=== PATIENT | male | born 1955 | race Caucasian/White ===

== ENCOUNTER 2019-08-27 11:24 | Inpatient (IN) | payer MEDICARE, OTHER, SELFPAY ==
[~2019-08-27] VITALS: Ht 177.8 cm; Wt 90.8 kg
[2019-08-27] MEDS ORDERED: SODIUM CHLORIDE FLUSH 10ML SYR IVF ONE (12:00)
[2019-08-27] MEDS ORDERED: ONDANSETRON 2MG/ML, 2ML IVPush ONE (12:00)
[2019-08-27] MEDS ORDERED: MAALOX/HYOSCYAMINE/LIDOCAINE 45 ML BTL PO ONE (12:00)
[2019-08-27] MEDS ORDERED: FAMOTIDINE 20 MG/2 ML IVPush ONE (12:00)
--- NOTE | 2019-08-27 12:02 | NUR ---
PT HAS CO OF CP STARTING THIS AM AND ABDOMINAL PAIN. NO N.V PT HAD FALL LAST NIGHT. ABRASIONS TO LEFT ARM. PT STATES HE FEEL SUICIDAL, BUT CANNOT STATE A PLAN. METER ATTENDANT IN PLACED
[2019-08-27 12:30] LABS: MEAN CORPUSCULAR HEMOGLOBIN 29.6 pg (27.5-34.5); MEAN CORPUSCULAR HGB CONC 32.5 g/dL (33.2-36.2); MEAN PLATELET VOLUME 6.9 fL (7.4-10.4); PLATELET COUNT 261 x10^3/uL (130-400); RED BLOOD COUNT 4.66 x10^6/uL (4.38-5.82); RED CELL DISTRIBUTION WIDTH 14.8 % (9.4-14.8)
[2019-08-27] MEDS ORDERED: ONDANSETRON 2MG/ML, 2ML ONE (12:31)
[2019-08-27] MEDS ORDERED: MAALOX/HYOSCYAMINE/LIDOCAINE 45 ML BTL ONE (12:31)
[2019-08-27] MEDS ORDERED: FAMOTIDINE 20 MG/2 ML ONE (12:31)
[2019-08-27 12:36] LABS: ALANINE AMINOTRANSFERASE 85 U/L (12-78); ALBUMIN 3.6 g/dL (3.4-5.0); ANION GAP 8 mmol/L (5-15); CALCIUM 8.2 mg/dL (8.5-10.1); CHLORIDE 113 mmol/L (98-107)
[2019-08-27 12:39] LABS: ALKALINE PHOSPHATASE 183 U/L (45-117); BILIRUBIN,TOTAL 0.4 mg/dL (0.2-1.0); CREATININE 0.74 mg/dL (0.7-1.3); TOTAL PROTEIN 7.3 g/dL (6.4-8.2); TROPONIN I < 0.015 ng/mL (0.000-0.045)
[2019-08-27 12:40] LABS: SALICYLATE LEVEL < 1.7 mg/dL (2.8-20.0)
[2019-08-27 12:58] LABS: BASOPHILS # (AUTO) 0.07 x10^3/uL (0-0.1); BASOPHILS % (AUTO) 1 % (0-1); EOSINOPHILS # (AUTO) 0.11 x10^3/uL (0-0.4); EOSINOPHILS % (AUTO) 2 % (1-7); LYMPHOCYTES # (AUTO) 3.03 x10^3/uL (1-3.4); LYMPHOCYTES % (AUTO) 56 % (22-44); MD SCAN; MONOCYTES # (AUTO) 0.35 x10^3/uL (0.2-0.8); MONOCYTES % (AUTO) 7 % (2-9); NEUTROPHILS # (AUTO) 1.85 x10^3/uL (1.8-6.8); NEUTROPHILS % (AUTO) 34 % (42-75)
[2019-08-27] MEDS ORDERED: CEFTRIAXONE PMX 1GM/50ML 50 ML IV SCH ×2 (13:00→17:00)
[2019-08-27] MEDS ORDERED: CEFTRIAXONE PMX 1GM/50ML 50 ML IV ONE (13:00)
[2019-08-27] MEDS ORDERED: AZITHROMYCIN 500 MG in SODIUM CHLORIDE 0.9% 250 ML IV ONE (13:00)
--- NOTE | 2019-08-27 13:00 | NUR ---
ultra sound at bedside.
[2019-08-27 13:04] LABS: MICROSCOPIC INDICATED
[2019-08-27 13:06] LABS: AMPHETAMINE SCREEN, URINE Negative (Negative); BARBITURATE SCREEN, URINE Negative (Negative); BENZODIAZEPINE SCREEN, URINE Negative (Negative); CANNABINOID SCREEN, URINE Negative (Negative); COCAINE SCREEN, URINE Negative (Negative); METHADONE SCREEN, URINE Negative (Negative); OPIATE SCREEN, URINE Negative (Negative)
[2019-08-27] MEDS ORDERED: CEFTRIAXONE PMX 1GM/50ML 50 ML ONE (13:06)
--- NOTE | 2019-08-27 13:29 | NUR ---
Cultures drawn, medications administered as ordered.
--- NOTE | 2019-08-27 14:51 | NUR ---
pt resting in bed, call light in reach.
--- NOTE | 2019-08-27 16:00 | NUR ---
pt resting in bed, call light in reach
[2019-08-27] MEDS ORDERED: POTASSIUM CHLORIDE 20 MEQ TAB.ER.PRT PO ONE (16:30)
[2019-08-27] MEDS ORDERED: POTASSIUM CHLORIDE 20 MEQ TAB.ER.PRT ONE (16:37)
[2019-08-27] MEDS: SODIUM CHLORIDE 0.9% 1,000 ML IV SCH (16:47)
[2019-08-27] MEDS ORDERED: BISACODYL 10 MG SUPP PR PRN (17:00)
[2019-08-27] MEDS ORDERED: IBUPROFEN 600 MG TABLET PO PRN (17:00)
[2019-08-27] MEDS ORDERED: ONDANSETRON 2MG/ML, 2ML IVPush PRN (17:00)
--- NOTE | 2019-08-27 17:04 | NUR ---
[facility] AT BEDSIDE FOR EVALUAITON
[2019-08-27] MEDS ORDERED: ENOXAPARIN 40 MG/0.4 ML ONE (17:09)
[2019-08-27] MEDS: ENOXAPARIN 40 MG/0.4 ML SQ SCH (17:16)
[2019-08-27 17:50] LABS: BASOPHILS # (AUTO) 0.04 x10^3/uL (0-0.1); BASOPHILS % (AUTO) 1 % (0-1); EOSINOPHILS # (AUTO) 0.21 x10^3/uL (0-0.4); EOSINOPHILS % (AUTO) 4 % (1-7); LYMPHOCYTES # (AUTO) 2.79 x10^3/uL (1-3.4); LYMPHOCYTES % (AUTO) 49 % (22-44); MD NO; MEAN CORPUSCULAR HEMOGLOBIN 29.9 pg (27.5-34.5); MEAN CORPUSCULAR HGB CONC 33.1 g/dL (33.2-36.2); MEAN PLATELET VOLUME 7.2 fL (7.4-10.4); MONOCYTES # (AUTO) 0.44 x10^3/uL (0.2-0.8); MONOCYTES % (AUTO) 8 % (2-9); NEUTROPHILS # (AUTO) 2.22 x10^3/uL (1.8-6.8); NEUTROPHILS % (AUTO) 39 % (42-75); PLATELET COUNT 243 x10^3/uL (130-400); RED BLOOD COUNT 4.61 x10^6/uL (4.38-5.82); RED CELL DISTRIBUTION WIDTH 14.6 % (9.4-14.8); TROPONIN I < 0.015 ng/mL (0.000-0.045)
--- NOTE | 2019-08-27 18:51 | NUR ---
REPORT TO CRISSY CROWLEY
[2019-08-27] MEDS: DOXYCYCLINE 100 MG in DEXTROSE 5% 250 ML IV SCH (18:56)
[2019-08-27] MEDS ORDERED: LORazepam 2 MG/ML, 1ML ONE (20:45)
[2019-08-27] MEDS: LORazepam 2 MG/ML, 1ML IVPush PRN (20:46)
--- NOTE | 2019-08-27 21:10 | NUR ---
Pt placed on hospital bed, updated with plan of care. Resp even and unlabored.
[2019-08-27 23:25] LABS: TROPONIN I < 0.015 ng/mL (0.000-0.045)
--- NOTE | 2019-08-28 02:20 | NUR ---
PT RESTING ON HOSPITAL BED. RESP EVEN AND UNLABORED. SITTER IN DIRECT LINE OF SIGHT. WILL CONTINUE TO MONITOR.
[2019-08-28] MEDS: SODIUM CHLORIDE 0.9% 1,000 ML IV SCH (02:47)
--- NOTE | 2019-08-28 04:00 | NUR ---
Pt resting on hospital bed. Resp even and unlabored. Sitter in direct line of sight.
[2019-08-28 05:43] LABS: ALBUMIN 3.1 g/dL (3.4-5.0); ANION GAP 5 mmol/L (5-15); CALCIUM 7.9 mg/dL (8.5-10.1); CHLORIDE 113 mmol/L (98-107)
[2019-08-28 05:52] LABS: ALANINE AMINOTRANSFERASE 68 U/L (12-78); ALKALINE PHOSPHATASE 133 U/L (45-117); BILIRUBIN,TOTAL 0.7 mg/dL (0.2-1.0); CHOL/HDL RATIO 2.1; CHOLESTEROL, TOTAL 133 mg/dL (140-239); HDL CHOL % 48 % (26-37); HDL CHOLESTEROL (DIRECT) 64 mg/dL (40-60); LDL CHOLESTEROL,CALCULATED 53 mg/dL (54-169); LDL/HDL RATIO 0.8 (0.5-3.0); TOTAL PROTEIN 6.1 g/dL (6.4-8.2); TRIGLYCERIDES 80 mg/dL (50-200); VLDL CHOLESTEROL 16 mg/dL (0-25)
--- NOTE | 2019-08-28 06:13 | NUR ---
Pt resting on hospital bed. Pt resp even and unlabored. Sitter in direct line of sight. Meal tray ordered
[2019-08-28] MEDS ORDERED: MAGNESIUM SULFATE PMX 2GM/50ML 50 ML IV ONE ×2 (08:00→20:00)
[2019-08-28] MEDS: THIAMINE 100MG TABLET PO SCH (08:17)
[2019-08-28] MEDS: FOLIC ACID 1 MG TABLET PO SCH (08:17)
[2019-08-28] MEDS: DOXYCYCLINE 100 MG in DEXTROSE 5% 250 ML IV SCH ×2 (08:17→20:15)
[2019-08-28] MEDS ORDERED: LORazepam 2 MG/ML, 1ML ONE (08:34)
[2019-08-28] MEDS ORDERED: MAGNESIUM SULFATE PMX 2GM/50ML 50 ML ONE (08:39)
[2019-08-28] MEDS: LORazepam 2 MG/ML, 1ML IVPush PRN ×4 (08:41→20:28)
--- NOTE | 2019-08-28 11:03 | NUR ---
PT SLEEPING IN BED. NAD. SITTER MONITORING FROM [facility]
[2019-08-28 12:03] VITALS: BP 133/77
[2019-08-28] MEDS: CEFTRIAXONE PMX 1GM/50ML 50 ML IV SCH (13:14)
[2019-08-28] MEDS: ENOXAPARIN 40 MG/0.4 ML SQ SCH (16:30)
[2019-08-28 21:46] VITALS: BP 141/82
[2019-08-29 02:22] VITALS: BP 106/62
[2019-08-29 05:39] LABS: BASOPHILS # (AUTO) 0.03 x10^3/uL (0-0.1); BASOPHILS % (AUTO) 1 % (0-1); EOSINOPHILS # (AUTO) 0.35 x10^3/uL (0-0.4); EOSINOPHILS % (AUTO) 7 % (1-7); LYMPHOCYTES # (AUTO) 2.21 x10^3/uL (1-3.4); LYMPHOCYTES % (AUTO) 46 % (22-44); MD NO; MEAN CORPUSCULAR HEMOGLOBIN 29.8 pg (27.5-34.5); MEAN PLATELET VOLUME 7.5 fL (7.4-10.4); MONOCYTES # (AUTO) 0.37 x10^3/uL (0.2-0.8); MONOCYTES % (AUTO) 8 % (2-9); NEUTROPHILS # (AUTO) 1.87 x10^3/uL (1.8-6.8); NEUTROPHILS % (AUTO) 39 % (42-75); PLATELET COUNT 203 x10^3/uL (130-400); RED BLOOD COUNT 4.31 x10^6/uL (4.38-5.82); RED CELL DISTRIBUTION WIDTH 14.4 % (9.4-14.8)
[2019-08-29 05:40] LABS: ALANINE AMINOTRANSFERASE 56 U/L (12-78); ALBUMIN 2.9 g/dL (3.4-5.0); ANION GAP 5 mmol/L (5-15); CALCIUM 8.3 mg/dL (8.5-10.1); CHLORIDE 110 mmol/L (98-107); CREATININE 0.66 mg/dL (0.7-1.3)
[2019-08-29 05:42] LABS: ALKALINE PHOSPHATASE 122 U/L (45-117); BILIRUBIN,TOTAL 0.6 mg/dL (0.2-1.0)
[2019-08-29] MEDS ORDERED: REGADENOSON 0.4 MG/5 ML SYRINGE ONE (07:35)
[2019-08-29 07:56] VITALS: BP 138/80
[2019-08-29] MEDS: FOLIC ACID 1 MG TABLET PO SCH (10:07)
[2019-08-29] MEDS: DOXYCYCLINE 100 MG in DEXTROSE 5% 250 ML IV SCH ×2 (10:07→21:56)
[2019-08-29] MEDS: THIAMINE 100MG TABLET PO SCH (10:07)
[2019-08-29] MEDS: LORazepam 2 MG/ML, 1ML IVPush PRN (10:12)
[2019-08-29 12:43] VITALS: BP 146/87
[2019-08-29] MEDS: CEFTRIAXONE PMX 1GM/50ML 50 ML IV SCH (14:35)
[2019-08-29 14:54] VITALS: BP 132/87
[2019-08-29] MEDS: ENOXAPARIN 40 MG/0.4 ML SQ SCH (17:43)
[2019-08-29 21:51] VITALS: BP 145/82
[2019-08-30 01:20] VITALS: BP 124/71
[2019-08-30] MEDS: THIAMINE 100MG TABLET PO SCH (08:47)
[2019-08-30 08:48] VITALS: BP 131/87
[2019-08-30] MEDS: FOLIC ACID 1 MG TABLET PO SCH (08:48)
[2019-08-30] MEDS ORDERED: PANTOPRAZOLE 40 MG IV IVPush SCH (09:00)
[2019-08-30] MEDS: DOXYCYCLINE 100 MG in DEXTROSE 5% 250 ML IV SCH ×2 (11:08→23:34)
[2019-08-30 13:31] VITALS: BP 147/85
[2019-08-30] MEDS: ACETAMINOPHEN 500 MG TABLET PO PRN ×2 (13:40→20:44)
[2019-08-30] MEDS: CEFTRIAXONE PMX 1GM/50ML 50 ML IV SCH (13:44)
[2019-08-30] MEDS: LORazepam 2 MG/ML, 1ML IVPush PRN ×3 (13:44→20:30)
[2019-08-30] MEDS: ENOXAPARIN 40 MG/0.4 ML SQ SCH (17:06)
[2019-08-30 19:02] VITALS: BP 145/94
[2019-08-31 01:56] VITALS: BP 127/76
[2019-08-31] MEDS: PANTOPRAZOLE 40MG TABLET PO SCH (06:22)
[2019-08-31] MEDS: LORazepam 2 MG/ML, 1ML IVPush PRN ×4 (06:28→20:44)
[2019-08-31 08:22] VITALS: BP 130/85
[2019-08-31] MEDS: FOLIC ACID 1 MG TABLET PO SCH (10:20)
[2019-08-31] MEDS: ACETAMINOPHEN 500 MG TABLET PO PRN ×2 (10:20→17:14)
[2019-08-31] MEDS: DOXYCYCLINE 100 MG in DEXTROSE 5% 250 ML IV SCH ×2 (10:20→23:15)
[2019-08-31] MEDS: THIAMINE 100MG TABLET PO SCH (10:20)
[2019-08-31 12:51] VITALS: BP 126/81
[2019-08-31] MEDS: CEFTRIAXONE PMX 1GM/50ML 50 ML IV SCH (13:16)
[2019-08-31] MEDS: ENOXAPARIN 40 MG/0.4 ML SQ SCH (17:14)
[2019-08-31 20:49] VITALS: BP 107/68
[2019-09-01] MEDS: LORazepam 2 MG/ML, 1ML IVPush PRN (01:16)
[2019-09-01 01:17] VITALS: BP 116/77
[2019-09-01] MEDS: PANTOPRAZOLE 40MG TABLET PO SCH (07:15)
[2019-09-01 07:19] VITALS: BP 117/86
[2019-09-01] MEDS ORDERED: LORazepam 2 MG/ML, 1ML IV PRN ×3 (08:00)
[2019-09-01] MEDS ORDERED: LORazepam 0.5MG TABLET PO PRN (08:00)
[2019-09-01] MEDS: LORazepam 1MG TABLET PO PRN ×3 (09:11→23:33)
[2019-09-01] MEDS: THIAMINE 100MG TABLET PO SCH (09:12)
[2019-09-01] MEDS: FOLIC ACID 1 MG TABLET PO SCH (09:12)
[2019-09-01] MEDS ORDERED: LORazepam 1MG TABLET ONE ×2 (11:21→20:56)
[2019-09-01 15:18] VITALS: BP 130/83
[2019-09-01] MEDS: POLYETHYLENE GLYCOL 17 GM PACKET PO PRN (17:33)
[2019-09-01] MEDS: ENOXAPARIN 40 MG/0.4 ML SQ SCH (17:33)
[2019-09-01] MEDS: ACETAMINOPHEN 500 MG TABLET PO PRN (17:33)
[2019-09-01 19:24] VITALS: BP 136/78
[2019-09-02 00:01] VITALS: BP 101/63
[2019-09-02] MEDS: PANTOPRAZOLE 40MG TABLET PO SCH (05:14)
[2019-09-02 05:22] LABS: MEAN PLATELET VOLUME 7.4 fL (7.4-10.4); PLATELET COUNT 212 x10^3/uL (130-400); RED BLOOD COUNT 4.88 x10^6/uL (4.38-5.82); RED CELL DISTRIBUTION WIDTH 14.9 % (9.4-14.8)
[2019-09-02 05:38] LABS: CHLORIDE 107 mmol/L (98-107)
[2019-09-02 05:47] LABS: ALANINE AMINOTRANSFERASE 55 U/L (12-78); ALBUMIN 3.4 g/dL (3.4-5.0); ALKALINE PHOSPHATASE 137 U/L (45-117); ANION GAP 7 mmol/L (5-15); BILIRUBIN,TOTAL 0.5 mg/dL (0.2-1.0); CALCIUM 9.2 mg/dL (8.5-10.1); CREATININE 0.83 mg/dL (0.7-1.3)
[2019-09-02 05:59] LABS: BASOPHILS # (AUTO) 0.02 x10^3/uL (0-0.1); BASOPHILS % (AUTO) 0 % (0-1); EOSINOPHILS # (AUTO) 0.38 x10^3/uL (0-0.4); EOSINOPHILS % (AUTO) 6 % (1-7); LYMPHOCYTES % (AUTO) 45 % (22-44); MD SCAN; MONOCYTES # (AUTO) 0.54 x10^3/uL (0.2-0.8); MONOCYTES % (AUTO) 9 % (2-9); NEUTROPHILS # (AUTO) 2.53 x10^3/uL (1.8-6.8); NEUTROPHILS % (AUTO) 40 % (42-75)
[2019-09-02 07:40] VITALS: BP 131/93
[2019-09-02] MEDS: THIAMINE 100MG TABLET PO SCH (07:51)
[2019-09-02] MEDS: FOLIC ACID 1 MG TABLET PO SCH (07:51)
[2019-09-02] MEDS: ACETAMINOPHEN 500 MG TABLET PO PRN (14:25)
[2019-09-02] MEDS: LORazepam 0.5MG TABLET PO PRN ×2 (14:25→19:52)
[2019-09-02 14:26] VITALS: BP 118/90
[2019-09-02] MEDS: ENOXAPARIN 40 MG/0.4 ML SQ SCH (17:00)
[2019-09-02 18:23] VITALS: BP 128/83
[2019-09-03 01:51] VITALS: BP 131/87
[2019-09-03] MEDS: PANTOPRAZOLE 40MG TABLET PO SCH (06:08)
[2019-09-03 06:10] VITALS: BP 121/76
[2019-09-03] MEDS: THIAMINE 100MG TABLET PO SCH (10:07)
[2019-09-03] MEDS: FOLIC ACID 1 MG TABLET PO SCH (10:07)
[2019-09-03 14:08] VITALS: BP 107/71
[2019-09-03] MEDS: BENZTROPINE 1 MG TABLET PO SCH ×2 (14:08→20:13)
[2019-09-03] MEDS: ENOXAPARIN 40 MG/0.4 ML SQ SCH (17:24)
[2019-09-03 19:19] VITALS: BP 92/60
[2019-09-03] MEDS ORDERED: MAALOX/HYOSCYAMINE/LIDOCAINE 45 ML BTL PO ONE (20:30)
[2019-09-03 20:33] VITALS: BP 123/81
[2019-09-03] MEDS: QUETIAPINE 100MG TABLET PO SCH (21:17)
[2019-09-04 00:54] VITALS: BP 121/81
[2019-09-04] MEDS: PANTOPRAZOLE 40MG TABLET PO SCH (05:42)
[2019-09-04 06:42] VITALS: BP 103/73
[2019-09-04] MEDS: THIAMINE 100MG TABLET PO SCH (09:02)
[2019-09-04] MEDS: BENZTROPINE 1 MG TABLET PO SCH ×2 (09:02→20:27)
[2019-09-04] MEDS: FOLIC ACID 1 MG TABLET PO SCH (09:02)
[2019-09-04 15:01] VITALS: BP 113/73
[2019-09-04] MEDS: ENOXAPARIN 40 MG/0.4 ML SQ SCH (17:37)
[2019-09-04] MEDS: DOCUSATE 100 MG CAPSULE PO PRN (17:41)
[2019-09-04] MEDS: POLYETHYLENE GLYCOL 17 GM PACKET PO PRN (17:41)
[2019-09-04 18:55] VITALS: BP 116/75
[2019-09-04] MEDS: QUETIAPINE 100MG TABLET PO SCH (20:28)
[2019-09-05 01:09] VITALS: BP 154/91
[2019-09-05] MEDS: PANTOPRAZOLE 40MG TABLET PO SCH (05:43)
[2019-09-05 06:35] VITALS: BP 103/71
[2019-09-05] MEDS: THIAMINE 100MG TABLET PO SCH (09:00)
[2019-09-05] MEDS: BENZTROPINE 1 MG TABLET PO SCH ×2 (10:42→20:23)
[2019-09-05] MEDS: FOLIC ACID 1 MG TABLET PO SCH (10:42)
[2019-09-05 13:21] VITALS: BP 126/87
[2019-09-05] MEDS: ENOXAPARIN 40 MG/0.4 ML SQ SCH (17:33)
[2019-09-05 19:50] VITALS: BP 129/79
[2019-09-05] MEDS: DOCUSATE 100 MG CAPSULE PO PRN (20:22)
[2019-09-05] MEDS: AMITRIPTYLINE 25 MG TABLET PO SCH (20:23)
[2019-09-05] MEDS: QUETIAPINE 200 MG TABLET PO SCH (20:23)
[2019-09-06 01:37] VITALS: BP 110/85
[2019-09-06] MEDS: PANTOPRAZOLE 40MG TABLET PO SCH (05:36)
[2019-09-06] MEDS: POLYETHYLENE GLYCOL 17 GM PACKET PO PRN (05:36)
[2019-09-06 08:26] VITALS: BP 118/72
[2019-09-06] MEDS: THIAMINE 100MG TABLET PO SCH (08:30)
[2019-09-06] MEDS: FOLIC ACID 1 MG TABLET PO SCH (08:30)
[2019-09-06] MEDS: BENZTROPINE 1 MG TABLET PO SCH ×2 (08:31→22:19)
[2019-09-06 14:15] VITALS: BP 114/75
[2019-09-06] MEDS: ENOXAPARIN 40 MG/0.4 ML SQ SCH (17:04)
[2019-09-06 18:39] VITALS: BP 98/59
[2019-09-06] MEDS: AMITRIPTYLINE 25 MG TABLET PO SCH (22:18)
[2019-09-06] MEDS: QUETIAPINE 200 MG TABLET PO SCH (22:19)
[2019-09-06] MEDS: DOCUSATE 100 MG CAPSULE PO PRN (22:19)
[2019-09-07 00:29] VITALS: BP 102/62
[2019-09-07] MEDS: PANTOPRAZOLE 40MG TABLET PO SCH (06:10)
[2019-09-07 06:27] VITALS: BP 127/75
[2019-09-07] MEDS: THIAMINE 100MG TABLET PO SCH (08:36)
[2019-09-07] MEDS: BENZTROPINE 1 MG TABLET PO SCH ×2 (08:36→20:33)
[2019-09-07] MEDS: FOLIC ACID 1 MG TABLET PO SCH (08:36)
[2019-09-07 13:33] VITALS: BP 116/74
[2019-09-07] MEDS: POLYETHYLENE GLYCOL 17 GM PACKET PO PRN (17:09)
[2019-09-07] MEDS: ENOXAPARIN 40 MG/0.4 ML SQ SCH (17:09)
[2019-09-07] MEDS: QUETIAPINE 200 MG TABLET PO SCH (20:33)
[2019-09-07] MEDS: AMITRIPTYLINE 25 MG TABLET PO SCH (20:33)
[2019-09-07 21:09] VITALS: BP 130/77
[2019-09-08 01:57] VITALS: BP 106/72
[2019-09-08] MEDS: PANTOPRAZOLE 40MG TABLET PO SCH (06:22)
[2019-09-08] MEDS: FOLIC ACID 1 MG TABLET PO SCH (08:09)
[2019-09-08] MEDS: BENZTROPINE 1 MG TABLET PO SCH ×2 (08:09→21:00)
[2019-09-08] MEDS: THIAMINE 100MG TABLET PO SCH (08:10)
[2019-09-08 08:36] VITALS: BP 117/78
[2019-09-08 12:51] VITALS: BP 124/83
[2019-09-08] MEDS: ENOXAPARIN 40 MG/0.4 ML SQ SCH (17:52)
[2019-09-08 20:03] VITALS: BP 127/84
[2019-09-08] MEDS: QUETIAPINE 200 MG TABLET PO SCH (21:00)
[2019-09-08] MEDS: AMITRIPTYLINE 25 MG TABLET PO SCH (21:00)
[2019-09-08] MEDS: POLYETHYLENE GLYCOL 17 GM PACKET PO PRN (21:04)
[2019-09-09 01:20] VITALS: BP 104/70
[2019-09-09] MEDS: LORazepam 0.5MG TABLET PO PRN ×2 (03:08→18:45)
[2019-09-09] MEDS: PANTOPRAZOLE 40MG TABLET PO SCH (05:48)
[2019-09-09 08:42] VITALS: BP 114/75
[2019-09-09] MEDS: THIAMINE 100MG TABLET PO SCH (10:16)
[2019-09-09] MEDS: hydrOXyzine 50MG TABLET PO PRN ×2 (10:16→23:22)
[2019-09-09] MEDS: BENZTROPINE 1 MG TABLET PO SCH ×2 (10:16→20:14)
[2019-09-09] MEDS: FOLIC ACID 1 MG TABLET PO SCH (10:16)
[2019-09-09 13:58] VITALS: BP 119/78
[2019-09-09] MEDS: ENOXAPARIN 40 MG/0.4 ML SQ SCH (18:40)
[2019-09-09 20:11] VITALS: BP 146/90
[2019-09-09] MEDS: QUETIAPINE 200 MG TABLET PO SCH (20:14)
[2019-09-09] MEDS ORDERED: AMITRIPTYLINE 50 MG TABLET PO SCH (21:00)
[2019-09-10] VITALS (10 sets, daily range): BP systolic 115–148; BP diastolic 73–87
[2019-09-10] MEDS: LORazepam 0.5MG TABLET PO PRN ×2 (02:55→20:55)
[2019-09-10] MEDS ORDERED: LORazepam 2 MG/ML, 1ML IVPush ONE (04:30)
[2019-09-10] MEDS: PANTOPRAZOLE 40MG TABLET PO SCH (05:58)
[2019-09-10] MEDS: BENZTROPINE 1 MG TABLET PO SCH ×2 (09:18→20:32)
[2019-09-10] MEDS: FOLIC ACID 1 MG TABLET PO SCH (09:18)
[2019-09-10] MEDS: THIAMINE 100MG TABLET PO SCH (09:18)
[2019-09-10] MEDS ORDERED: QUETIAPINE 100MG TABLET PO SCH (09:30)
[2019-09-10] MEDS ORDERED: CHLORDIAZEPOXIDE 25 MG CAPSULE PO SCH (12:00)
[2019-09-10 15:20] LABS: BASOPHILS # (AUTO) 0.05 x10^3/uL (0-0.1); BASOPHILS % (AUTO) 1 % (0-1); EOSINOPHILS # (AUTO) 0.18 x10^3/uL (0-0.4); EOSINOPHILS % (AUTO) 3 % (1-7); LYMPHOCYTES # (AUTO) 2.17 x10^3/uL (1-3.4); LYMPHOCYTES % (AUTO) 39 % (22-44); MD NO; MEAN CORPUSCULAR HEMOGLOBIN 30.2 pg (27.5-34.5); MEAN CORPUSCULAR HGB CONC 33.2 g/dL (33.2-36.2); MEAN PLATELET VOLUME 7.7 fL (7.4-10.4); MONOCYTES # (AUTO) 0.54 x10^3/uL (0.2-0.8); MONOCYTES % (AUTO) 10 % (2-9); NEUTROPHILS # (AUTO) 2.65 x10^3/uL (1.8-6.8); NEUTROPHILS % (AUTO) 47 % (42-75); PLATELET COUNT 246 x10^3/uL (130-400); RED BLOOD COUNT 5.05 x10^6/uL (4.38-5.82); RED CELL DISTRIBUTION WIDTH 14.8 % (9.4-14.8)
[2019-09-10 15:28] LABS: ALANINE AMINOTRANSFERASE 56 U/L (12-78); ALBUMIN 4.5 g/dL (3.4-5.0); ANION GAP 7 mmol/L (5-15); CALCIUM 9.8 mg/dL (8.5-10.1); CHLORIDE 108 mmol/L (98-107)
[2019-09-10 15:31] LABS: ALKALINE PHOSPHATASE 172 U/L (45-117); CREATININE 1.05 mg/dL (0.7-1.3); TOTAL PROTEIN 8.1 g/dL (6.4-8.2)
[2019-09-10] MEDS ORDERED: HALOPERIDOL 5 MG/ML IV PRN (16:30)
[2019-09-10] MEDS ORDERED: LORazepam 2 MG/ML, 1ML ONE (16:47)
[2019-09-10] MEDS ORDERED: LORazepam 2 MG/ML, 1ML IM ONE (17:00)
[2019-09-10] MEDS ORDERED: PHARMACY INSTRUCTION MC PRN (17:00)
[2019-09-10] MEDS ORDERED: INSTRUCTION SEE COMMENTS XX PRN (17:00)
[2019-09-10] MEDS ORDERED: HALOPERIDOL 5 MG/ML IM ONE (17:00)
[2019-09-10] MEDS: ENOXAPARIN 40 MG/0.4 ML SQ SCH (17:31)
[2019-09-10] MEDS: QUETIAPINE 200 MG TABLET PO SCH (20:32)
[2019-09-10] MEDS: MELATONIN 3 MG TABLET PO SCH (20:32)
[2019-09-10] MEDS ORDERED: VALPROATE SODIUM 100 MG/ML, 5ML IV SCH (21:00)
[2019-09-10] MEDS: VALPROATE SODIUM 250 MG in DEXTROSE 5% 100 ML IV SCH (21:35)
[2019-09-11] MEDS ORDERED: HALOPERIDOL 5 MG/ML IV PRN (00:30)
[2019-09-11] MEDS: PANTOPRAZOLE 40MG TABLET PO SCH (05:56)
[2019-09-11 06:00] VITALS: BP 102/73
[2019-09-11 07:48] LABS: BASOPHILS # (AUTO) 0.04 x10^3/uL (0-0.1); BASOPHILS % (AUTO) 1 % (0-1); EOSINOPHILS % (AUTO) 7 % (1-7); LYMPHOCYTES # (AUTO) 2.36 x10^3/uL (1-3.4); LYMPHOCYTES % (AUTO) 40 % (22-44); MD NO; MEAN CORPUSCULAR HEMOGLOBIN 29.8 pg (27.5-34.5); MEAN CORPUSCULAR HGB CONC 32.8 g/dL (33.2-36.2); MEAN PLATELET VOLUME 7.6 fL (7.4-10.4); MONOCYTES # (AUTO) 0.62 x10^3/uL (0.2-0.8); MONOCYTES % (AUTO) 10 % (2-9); NEUTROPHILS # (AUTO) 2.53 x10^3/uL (1.8-6.8); NEUTROPHILS % (AUTO) 43 % (42-75); PLATELET COUNT 234 x10^3/uL (130-400); RED BLOOD COUNT 5.26 x10^6/uL (4.38-5.82); RED CELL DISTRIBUTION WIDTH 15.1 % (9.4-14.8)
[2019-09-11 08:13] LABS: ANION GAP 7 mmol/L (5-15); CALCIUM 10.3 mg/dL (8.5-10.1); CHLORIDE 108 mmol/L (98-107)
[2019-09-11 08:17] LABS: ALANINE AMINOTRANSFERASE 58 U/L (12-78); ALKALINE PHOSPHATASE 190 U/L (45-117); BILIRUBIN,TOTAL 1.5 mg/dL (0.2-1.0); CREATININE 1.08 mg/dL (0.7-1.3); TOTAL PROTEIN 8.1 g/dL (6.4-8.2)
[2019-09-11 08:25] VITALS: BP 142/75
[2019-09-11] MEDS: BENZTROPINE 1 MG TABLET PO SCH ×2 (09:18→20:42)
[2019-09-11] MEDS: THIAMINE 100MG TABLET PO SCH (09:18)
[2019-09-11] MEDS: FOLIC ACID 1 MG TABLET PO SCH (09:18)
[2019-09-11] MEDS: VALPROATE SODIUM 250 MG in DEXTROSE 5% 100 ML IV SCH ×2 (11:24→20:42)
[2019-09-11 14:34] VITALS: BP 136/93
[2019-09-11] MEDS ORDERED: SODIUM CHLORIDE 0.9% 1,000ML IVBOLUS ONE (17:00)
[2019-09-11] MEDS: ENOXAPARIN 40 MG/0.4 ML SQ SCH (18:02)
[2019-09-11 18:40] LABS: MICROSCOPIC NOT IND
[2019-09-11 19:03] VITALS: BP 100/69
[2019-09-11] MEDS: QUETIAPINE 200 MG TABLET PO SCH (20:42)
[2019-09-11] MEDS: MELATONIN 3 MG TABLET PO SCH (20:43)
[2019-09-12] MEDS: PANTOPRAZOLE 40MG TABLET PO SCH (05:39)
[2019-09-12 05:57] VITALS: BP 107/73
[2019-09-12 06:54] VITALS: BP 105/74
[2019-09-12] MEDS: VALPROATE SODIUM 250 MG in DEXTROSE 5% 100 ML IV SCH (09:07)
[2019-09-12] MEDS: BENZTROPINE 1 MG TABLET PO SCH ×2 (09:08→21:49)
[2019-09-12] MEDS: FOLIC ACID 1 MG TABLET PO SCH (09:08)
[2019-09-12] MEDS: THIAMINE 100MG TABLET PO SCH (09:08)
[2019-09-12] MEDS: DOCUSATE 100 MG CAPSULE PO PRN (12:20)
[2019-09-12 12:46] VITALS: BP 113/77
[2019-09-12] MEDS: POLYETHYLENE GLYCOL 17 GM PACKET PO PRN (16:28)
[2019-09-12] MEDS: ENOXAPARIN 40 MG/0.4 ML SQ SCH (16:28)
[2019-09-12 20:16] VITALS: BP 125/81
[2019-09-12] MEDS: MELATONIN 3 MG TABLET PO SCH (21:49)
[2019-09-12] MEDS: ACETAMINOPHEN 500 MG TABLET PO PRN (21:49)
[2019-09-12] MEDS: QUETIAPINE 200 MG TABLET PO SCH (21:50)
[2019-09-13 03:58] VITALS: BP 115/79
[2019-09-13 04:48] LABS: MEAN CORPUSCULAR HEMOGLOBIN 30.1 pg (27.5-34.5); PLATELET COUNT 238 x10^3/uL (130-400); RED BLOOD COUNT 4.88 x10^6/uL (4.38-5.82)
[2019-09-13 04:56] LABS: CHLORIDE 107 mmol/L (98-107)
[2019-09-13 05:02] LABS: ALANINE AMINOTRANSFERASE 48 U/L (12-78); ALBUMIN 3.2 g/dL (3.4-5.0); ALKALINE PHOSPHATASE 154 U/L (45-117); ANION GAP 5 mmol/L (5-15); BILIRUBIN,TOTAL 0.6 mg/dL (0.2-1.0); CALCIUM 9.2 mg/dL (8.5-10.1); CREATININE 0.98 mg/dL (0.7-1.3); TOTAL PROTEIN 6.6 g/dL (6.4-8.2)
[2019-09-13] MEDS: PANTOPRAZOLE 40MG TABLET PO SCH (05:17)
[2019-09-13 05:21] LABS: BASOPHILS # (AUTO) 0.04 x10^3/uL (0-0.1); BASOPHILS % (AUTO) 1 % (0-1); EOSINOPHILS # (AUTO) 0.33 x10^3/uL (0-0.4); EOSINOPHILS % (AUTO) 6 % (1-7); LYMPHOCYTES # (AUTO) 3.33 x10^3/uL (1-3.4); LYMPHOCYTES % (AUTO) 58 % (22-44); MD SCAN; MONOCYTES # (AUTO) 0.48 x10^3/uL (0.2-0.8); MONOCYTES % (AUTO) 8 % (2-9); NEUTROPHILS # (AUTO) 1.52 x10^3/uL (1.8-6.8); NEUTROPHILS % (AUTO) 27 % (42-75)
[2019-09-13 08:35] VITALS: BP 100/69
[2019-09-13] MEDS ORDERED: HYDROCORTISONE CRM 1%, 30GM TP PRN (09:00)
[2019-09-13] MEDS: BENZTROPINE 1 MG TABLET PO SCH ×2 (09:28→20:40)
[2019-09-13] MEDS: THIAMINE 100MG TABLET PO SCH (09:28)
[2019-09-13] MEDS: FOLIC ACID 1 MG TABLET PO SCH (09:28)
[2019-09-13 13:14] VITALS: BP 116/79
[2019-09-13] MEDS: ENOXAPARIN 40 MG/0.4 ML SQ SCH (17:21)
[2019-09-13 18:22] VITALS: BP 104/65
[2019-09-13] MEDS: MELATONIN 3 MG TABLET PO SCH (20:40)
[2019-09-13] MEDS: DOCUSATE 100 MG CAPSULE PO PRN (20:40)
[2019-09-13] MEDS: QUETIAPINE 200 MG TABLET PO SCH (20:40)
[2019-09-14 01:44] VITALS: BP 109/68
[2019-09-14] MEDS: PANTOPRAZOLE 40MG TABLET PO SCH (05:34)
[2019-09-14 07:38] VITALS: BP 107/71
[2019-09-14] MEDS: THIAMINE 100MG TABLET PO SCH (07:45)
[2019-09-14] MEDS: FOLIC ACID 1 MG TABLET PO SCH (07:45)
[2019-09-14] MEDS: BENZTROPINE 1 MG TABLET PO SCH ×2 (07:45→20:39)
[2019-09-14] MEDS: POLYETHYLENE GLYCOL 17 GM PACKET PO PRN (10:00)
[2019-09-14] MEDS: DOCUSATE 100 MG CAPSULE PO PRN (10:00)
[2019-09-14 13:01] VITALS: BP 130/79
[2019-09-14] MEDS: ENOXAPARIN 40 MG/0.4 ML SQ SCH (17:07)
[2019-09-14 18:56] VITALS: BP 136/88
[2019-09-14] MEDS: QUETIAPINE 200 MG TABLET PO SCH (20:39)
[2019-09-14] MEDS: MELATONIN 3 MG TABLET PO SCH (20:39)
[2019-09-15 02:00] VITALS: BP 129/82
[2019-09-15] MEDS: PANTOPRAZOLE 40MG TABLET PO SCH (05:14)
[2019-09-15 07:38] VITALS: BP 108/69
[2019-09-15] MEDS: FOLIC ACID 1 MG TABLET PO SCH (08:19)
[2019-09-15] MEDS: THIAMINE 100MG TABLET PO SCH (08:19)
[2019-09-15] MEDS: BENZTROPINE 1 MG TABLET PO SCH ×2 (08:19→20:24)
[2019-09-15] MEDS: POLYETHYLENE GLYCOL 17 GM PACKET PO PRN (11:37)
[2019-09-15] MEDS: DOCUSATE 100 MG CAPSULE PO PRN (11:37)
[2019-09-15 13:54] VITALS: BP 126/85
[2019-09-15] MEDS: ENOXAPARIN 40 MG/0.4 ML SQ SCH (17:24)
[2019-09-15 19:47] VITALS: BP 129/83
[2019-09-15] MEDS: QUETIAPINE 200 MG TABLET PO SCH (20:24)
[2019-09-15] MEDS: MELATONIN 3 MG TABLET PO SCH (20:24)
[2019-09-15] MEDS ORDERED: MIRTAZAPINE 15 MG TABLET PO SCH (21:00)
[2019-09-16 01:45] VITALS: BP 121/68
[2019-09-16] MEDS: PANTOPRAZOLE 40MG TABLET PO SCH (06:08)
[2019-09-16 07:36] VITALS: BP 128/81
[2019-09-16] MEDS: BENZTROPINE 1 MG TABLET PO SCH (08:45)
[2019-09-16] MEDS: THIAMINE 100MG TABLET PO SCH (08:45)
[2019-09-16] MEDS: FOLIC ACID 1 MG TABLET PO SCH (08:45)
[2019-09-16] MEDS ORDERED: HYDR50TA99 PO (12:09)
[2019-09-16] MEDS ORDERED: FOLI-17 PO (12:09)
[2019-09-16] MEDS ORDERED: PANT40TA6 PO (12:09)
[2019-09-16] MEDS ORDERED: MELA3TAB31 PO (12:09)
[2019-09-16] MEDS ORDERED: QUET200T PO (12:09)
[2019-09-16] MEDS ORDERED: BENZ1TAB61 PO (12:09)
[2019-09-16] MEDS ORDERED: MIRT-34 PO (12:09)
[2019-09-16] MEDS ORDERED: THIA100T67 PO (12:09)
[2019-09-16] MEDS ORDERED: HYDR453. TP (12:09)
== END 2019-09-16 13:40 | DRG 177 ==
LOC: ED 12:54 → EDIP 13:32 → 4NE 08-28 11:59 → 5SO 08-29 12:27 → 3WST 08-30 17:45 → 3N 09-01 22:22 → 4EST 09-10 19:05 → 4WST 09-13 19:00
PROVIDERS: ADMIT Internal Medicine; ATTEND Family Medicine
DX: J15.6 Pneumonia due to other Gram-negative bacteria (principal); G93.41 Metabolic encephalopathy; R45.851 Suicidal ideations; E44.0 Moderate protein-calorie malnutrition; F10.239 Alcohol dependence with withdrawal, unspecified; F10.229 Alcohol dependence with intoxication, unspecified; R74.0 Nonspecific elevation of levels of transaminase and lactic acid dehydrogenase [LDH]; K29.70 Gastritis, unspecified, without bleeding; E87.6 Hypokalemia; Z68.28 Body mass index [BMI] 28.0-28.9, adult; E78.5 Hyperlipidemia, unspecified; F17.200 Nicotine dependence, unspecified, uncomplicated; F41.9 Anxiety disorder, unspecified; I10 Essential (primary) hypertension; Z20.828 Contact with and (suspected) exposure to other viral communicable diseases; F31.9 Bipolar disorder, unspecified; L21.9 Seborrheic dermatitis, unspecified; S40.812A Abrasion of left upper arm, initial encounter; Y90.8 Blood alcohol level of 240 mg/100 ml or more; Z66 Do not resuscitate; Z82.3 Family history of stroke; Z90.49 Acquired absence of other specified parts of digestive tract; Z91.5 Personal history of self-harm; W18.39XA Other fall on same level, initial encounter; Y93.89 Activity, other specified; Y92.89 Other specified places as the place of occurrence of the external cause; Y99.8 Other external cause status
CPT/HCPCS: 36415; 71045; 76700; 78452; 80053; 80061; 80307; 81001; 81003; 82607; 83605; 83690; 83735; 83880; 84100; 84145; 84443; 84484; 85025; 87040; 87635; 93005; 93017; 96365; 96375; 99285; G0378; J0456; J0696; J1650; J2405; J2785; J7060; A9502; C9113; C9898; J1630; J2060; J3475; J3490; J7030; J7050

== ENCOUNTER 2019-10-12 21:13 | Emergency (ER) | payer MEDICARE ==
[~2019-10-12] VITALS: Ht 180.3 cm; Wt 89.0 kg
[~2019-10-12 21:13] MED LIST: BENZ1TAB61 PO; FOLI-17 PO; HYDR453. TP; HYDR50TA99 PO; MELA3TAB31 PO; MIRT-34 PO; PANT40TA5 PO; QUET200T PO; THIA100T67 PO
[2019-10-12] MEDS ORDERED: MAALOX/HYOSCYAMINE/LIDOCAINE 45 ML BTL PO ONE (21:30)
[2019-10-12] MEDS ORDERED: MAALOX/HYOSCYAMINE/LIDOCAINE 45 ML BTL ONE (21:42)
[2019-10-12 21:44] LABS: BASOPHILS # (AUTO) 0.02 x10^3/uL (0-0.1); BASOPHILS % (AUTO) 0 % (0-1); EOSINOPHILS # (AUTO) 0.05 x10^3/uL (0-0.4); EOSINOPHILS % (AUTO) 1 % (1-7); LYMPHOCYTES # (AUTO) 1.42 x10^3/uL (1-3.4); LYMPHOCYTES % (AUTO) 17 % (22-44); MD NO; MEAN CORPUSCULAR HEMOGLOBIN 29.6 pg (27.5-34.5); MEAN CORPUSCULAR HGB CONC 33.2 g/dL (33.2-36.2); MEAN CORPUSCULAR VOLUME 89.3 fL (81-97); MEAN PLATELET VOLUME 7.4 fL (7.4-10.4); MONOCYTES # (AUTO) 0.76 x10^3/uL (0.2-0.8); MONOCYTES % (AUTO) 9 % (2-9); NEUTROPHILS # (AUTO) 6.04 x10^3/uL (1.8-6.8); NEUTROPHILS % (AUTO) 73 % (42-75); PLATELET COUNT 261 x10^3/uL (130-400); RED BLOOD COUNT 5.05 x10^6/uL (4.38-5.82); RED CELL DISTRIBUTION WIDTH 14.5 % (9.4-14.8)
--- NOTE | 2019-10-12 21:48 | NUR ---
PT STATED "HE IS HOMELESS AND JUST GOT OUT OF [facility] AND WAS GIVE A MAP TO [facility], PT SAID HE HAD NO MONEY SOME HE THOUGHT IT MIGHT BE BETTER TO COME TO ER FOR A BED"
[2019-10-12 21:57] LABS: ALANINE AMINOTRANSFERASE 65 U/L (12-78); ALBUMIN 4.3 g/dL (3.4-5.0); ANION GAP 11 mmol/L (5-15); CHLORIDE 106 mmol/L (98-107)
[2019-10-12 22:02] LABS: ALKALINE PHOSPHATASE 187 U/L (45-117); BILIRUBIN,TOTAL 0.9 mg/dL (0.2-1.0); CREATININE 1.37 mg/dL (0.7-1.3); TOTAL PROTEIN 8.4 g/dL (6.4-8.2); TROPONIN I < 0.015 ng/mL (0.000-0.045)
--- NOTE | 2019-10-12 22:09 | NUR ---
PT RESTING IN BED, PT HAS NO WANTS OR NEEDS AT THIS TIME, PT ON MONITOR, MANAGER BANK WILL CONTINUE TO MONITOR PT.
--- NOTE | 2019-10-12 23:33 | NUR ---
PT RESTING IN BED, PT HAS NO WANTS OR NEEDS AT THIS TIME, PT ON MONITOR, DIRECTOR OF DIAGNOSTIC IMAGING WILL CONTINUE TO MONITOR PT.
[2019-10-13 00:45] VITALS: BP 136/82
== END 2019-10-13 01:00 | disposition home or self-care (01) ==
LOC: ED 22:23
DX: R07.89 Other chest pain (principal); R10.11 Right upper quadrant pain; R00.0 Tachycardia, unspecified; Z87.891 Personal history of nicotine dependence
CPT/HCPCS: 36415; 71045; 76700; 80053; 83690; 84484; 85025; 93005; 99285

== ENCOUNTER 2019-10-13 08:43 | Emergency (ER) | payer MEDICAID, MEDICARE ==
[~2019-10-13] VITALS: Ht 177.8 cm; Wt 90.0 kg
--- NOTE | 2019-10-13 09:00 | NUR ---
THIS IS A 64 YO M W/ C/O CP AND RUQ ABD WORSE FROM DC LAST NIGHT. PT DESCRIBES CP SQUEEZING SENSATION 07/28. PT DENIES SOB/DIZZINESS/PALPITATIONS. PT RESTING ON GURNEY W/ CALL LIGHT IN REACH AND SIDE RAILS UPX2. CONNECTED TO ALL MONITORING. COLIN EL. AWAITING ED EVAL.
--- NOTE | 2019-10-13 09:06 | NUR ---
[employer] MED STUDENT AT BEDSIDE.
[2019-10-13 09:36] VITALS: BP 123/87
[2019-10-13] MEDS ORDERED: QUETIAPINE 100MG TABLET ONE (09:47)
[2019-10-13] MEDS ORDERED: FLUOXETINE 10 MG CAP ONE (09:47)
[2019-10-13] MEDS ORDERED: FLUOXETINE HCL 20 MG CAPSULE ONE (09:48)
[2019-10-13] MEDS ORDERED: FLUOXETINE 10 MG CAP PO ONE (10:00)
[2019-10-13] MEDS ORDERED: QUETIAPINE 100MG TABLET PO ONE (10:00)
--- NOTE | 2019-10-13 10:01 | NUR ---
PT STATES "THIS WOULD ALL BE EASIER IF I JUST KILLED MYSELF, I JUST WANT TO GO BACK TO [place]". PT REPORTS SI X3-4 HOURS W/ PLAN TO JUMP OFF [facility]. DR.VAN KAUFMAN UPDATED. PT WAS DC FROM [place] YESTERDAY.
[2019-10-13 10:26] LABS: ALBUMIN 4.3 g/dL (3.4-5.0); ANION GAP 6 mmol/L (5-15); CALCIUM 9.8 mg/dL (8.5-10.1); CHLORIDE 108 mmol/L (98-107)
[2019-10-13 10:30] LABS: ALANINE AMINOTRANSFERASE 66 U/L (12-78); ALKALINE PHOSPHATASE 190 U/L (45-117); BILIRUBIN,TOTAL 1.1 mg/dL (0.2-1.0); CREATININE 1.12 mg/dL (0.7-1.3); TROPONIN I < 0.015 ng/mL (0.000-0.045)
--- NOTE | 2019-10-13 11:11 | NUR ---
Patient given discharge instructions and they have confirmed that they understand the instructions. Patient ambulatory with steady gait. Patient provided w/ taxi voucher to [place] as requested.
== END 2019-10-13 11:12 | disposition home or self-care (01) ==
LOC: ED 09:25
DX: K29.20 Alcoholic gastritis without bleeding (principal); R00.0 Tachycardia, unspecified
CPT/HCPCS: 36415; 80053; 84484; 93005; 99284

== ENCOUNTER 2019-10-16 00:21 | Emergency (ER) | payer MEDICARE ==
[~2019-10-16] VITALS: Ht 177.8 cm; Wt 95.0 kg
[2019-10-16 00:23] VITALS: BP 138/84
[2019-10-16] MEDS ORDERED: FAMOTIDINE 20 MG TABLET ONE (00:43)
[2019-10-16] MEDS ORDERED: FAMOTIDINE 20 MG TABLET PO ONE (01:00)
== END 2019-10-16 00:49 | disposition home or self-care (01) ==
LOC: ED 00:30
DX: R10.13 Epigastric pain (principal); R07.89 Other chest pain; R11.2 Nausea with vomiting, unspecified; R06.02 Shortness of breath; I21.9 Acute myocardial infarction, unspecified; Z87.891 Personal history of nicotine dependence
CPT/HCPCS: 93005; 99283

== ENCOUNTER 2019-10-16 14:22 | Emergency (ER) | payer MEDICARE ==
[~2019-10-16] VITALS: Ht 180.3 cm; Wt 95.0 kg
--- NOTE | 2019-10-16 14:36 | NUR ---
ASSUMED CARE OF PATIENT. BIB [facility] FOR CENTER CHEST PAIN WITH SOB. PT REPORTS HE WAS SEEN YESTERDAY FOR THE SAME. EKG DONE. ENTERTAINER OR VARIETY ARTIST ON. NSR NOTED. VS STABLE. CALL LIGHT IN PLACE. PT HAS BEEN SEEN BY Kip YOUSSEF. PT WAS GIVEN ASA 324 BY EMS WELL 0.4 OF NITRO. PT REPORTS HE HAS A HISTORY OF BIPOLAR AND HEP C. PT DENIES SI. DR YOUSSEF AWARE OF PSYCH HISTORY. PER DR YOUSSEF NO PSYCH CONSULT NEEDED. WILL CONTINUE TO MONITOR.
--- NOTE | 2019-10-16 14:54 | NUR ---
LABS DONE, XRAY IN ROOM
[2019-10-16] MEDS ORDERED: MAALOX/HYOSCYAMINE/LIDOCAINE 45 ML BTL ONE (14:55)
[2019-10-16] MEDS ORDERED: MAALOX/HYOSCYAMINE/LIDOCAINE 45 ML BTL PO ONE (15:00)
[2019-10-16 15:01] LABS: BASOPHILS # (AUTO) 0.04 x10^3/uL (0-0.1); BASOPHILS % (AUTO) 1 % (0-1); EOSINOPHILS # (AUTO) 0.17 x10^3/uL (0-0.4); EOSINOPHILS % (AUTO) 3 % (1-7); LYMPHOCYTES # (AUTO) 2.64 x10^3/uL (1-3.4); LYMPHOCYTES % (AUTO) 43 % (22-44); MD NO; MEAN CORPUSCULAR HEMOGLOBIN 29.4 pg (27.5-34.5); MEAN CORPUSCULAR HGB CONC 32.5 g/dL (33.2-36.2); MEAN CORPUSCULAR VOLUME 90.4 fL (81-97); MEAN PLATELET VOLUME 6.7 fL (7.4-10.4); MONOCYTES # (AUTO) 0.47 x10^3/uL (0.2-0.8); MONOCYTES % (AUTO) 8 % (2-9); NEUTROPHILS # (AUTO) 2.78 x10^3/uL (1.8-6.8); NEUTROPHILS % (AUTO) 46 % (42-75); PLATELET COUNT 306 x10^3/uL (130-400); RED BLOOD COUNT 4.49 x10^6/uL (4.38-5.82)
--- NOTE | 2019-10-16 15:11 | NUR ---
PT WATCHING TV IN ROOM. VS STABLE. NO ACUTE DISTRESS NOTED. EXHIBITOR SALES ON. NSR NOTED. CALL LIGHT IN PLACE. WILL CONTINUE TO MONITOR.
[2019-10-16 15:12] LABS: ALANINE AMINOTRANSFERASE 58 U/L (12-78); ALBUMIN 3.8 g/dL (3.4-5.0); ANION GAP 8 mmol/L (5-15); CALCIUM 9.3 mg/dL (8.5-10.1); CHLORIDE 108 mmol/L (98-107); CREATININE 0.96 mg/dL (0.7-1.3)
[2019-10-16 15:16] LABS: ALKALINE PHOSPHATASE 150 U/L (45-117); BILIRUBIN,TOTAL 0.9 mg/dL (0.2-1.0); TOTAL PROTEIN 7.3 g/dL (6.4-8.2); TROPONIN I < 0.015 ng/mL (0.000-0.045)
--- NOTE | 2019-10-16 15:45 | NUR ---
PT WATCHING TV IN ROOM. VS STABLE. COMMERCIAL ACCOUNT OFFICER ON. NSR NOTED. CALL LIGHT IN PLACE. WILL CONTINUE TO MONITOR.
--- NOTE | 2019-10-16 16:58 | NUR ---
PT GIVEN A TAXI VOUCHER TO [facility] WITH [employer].
[2019-10-16 17:02] VITALS: BP 146/82
== END 2019-10-16 17:04 | disposition home or self-care (01) ==
LOC: ED 16:20
DX: R07.89 Other chest pain (principal); R06.02 Shortness of breath; R42 Dizziness and giddiness; I10 Essential (primary) hypertension; K21.9 Gastro-esophageal reflux disease without esophagitis; E78.5 Hyperlipidemia, unspecified; F17.200 Nicotine dependence, unspecified, uncomplicated
CPT/HCPCS: 36415; 71045; 80053; 80307; 83880; 84484; 85025; 93005; 99285

== ENCOUNTER 2019-10-30 13:54 | Emergency (ER) | payer MEDICARE ==
[~2019-10-30] VITALS: Ht 177.8 cm; Wt 88.6 kg
[~2019-10-30 13:54] MED LIST changes: -PANT40TA5 PO; +PANT40TA6 PO
[2019-10-30] MEDS ORDERED: MAALOX/HYOSCYAMINE/LIDOCAINE 45 ML BTL PO ONE (14:30)
[2019-10-30 14:45] LABS: BASOPHILS % (AUTO) 0 % (0-1); EOSINOPHILS # (AUTO) 0.01 x10^3/uL (0-0.4); EOSINOPHILS % (AUTO) 0 % (1-7); LYMPHOCYTES # (AUTO) 2.58 x10^3/uL (1-3.4); LYMPHOCYTES % (AUTO) 37 % (22-44); MD NO; MEAN CORPUSCULAR HEMOGLOBIN 29.9 pg (27.5-34.5); MEAN CORPUSCULAR HGB CONC 33.1 g/dL (33.2-36.2); MEAN CORPUSCULAR VOLUME 90.3 fL (81-97); MONOCYTES % (AUTO) 6 % (2-9); NEUTROPHILS % (AUTO) 57 % (42-75); PLATELET COUNT 257 x10^3/uL (130-400); RED BLOOD COUNT 5.08 x10^6/uL (4.38-5.82); RED CELL DISTRIBUTION WIDTH 14.5 % (9.4-14.8)
[2019-10-30] MEDS ORDERED: MAALOX/HYOSCYAMINE/LIDOCAINE 45 ML BTL ONE (14:53)
[2019-10-30 14:56] LABS: ALANINE AMINOTRANSFERASE 69 U/L (12-78); ANION GAP 9 mmol/L (5-15); CHLORIDE 108 mmol/L (98-107); CREATININE 0.86 mg/dL (0.7-1.3)
[2019-10-30 14:58] LABS: ALKALINE PHOSPHATASE 178 U/L (45-117); BILIRUBIN,TOTAL 0.5 mg/dL (0.2-1.0); TOTAL PROTEIN 7.9 g/dL (6.4-8.2)
[2019-10-30 15:01] LABS: SALICYLATE LEVEL < 1.7 mg/dL (2.8-20.0)
--- NOTE | 2019-10-30 16:06 | NUR ---
PT BEGAN YELLING AT THIS RN THAT HE WOULD LIKE TO LEAVE AND STATED "WHATS GOING ON HERE, WHAT ARE YOU EVEN DOING, I'M JUST SITTING HERE", PT NOTIFIED FOR THE THIRD TIME WE ARE AWAITNG LABS, RECORDS FROM [facility], AND A BA OF LESS THAN 0.08 FOR A PSYCH EVAL. PT STATED "I'M LEAVING, I'M NOT SUICIDAL". RN TOLD PT SHE WOULD NOTIFIY MD AND SEE ABOUT DISCHARGE, PT THEN STATES, "I LIED, I AM SUICIDAL, I DONT KNOW, I NEED HELP", PT NOTIFIED HE IS NOT ABLE TO LEAVE IF HE IS SUICIDAL AND AGREES TO STAY. SITTER AT BEDSIDE. MD NOTIFIED.
[2019-10-30] MEDS ORDERED: ACETAMINOPHEN 500 MG TABLET PO ONE (16:30)
--- NOTE | 2019-10-30 17:02 | NUR ---
PT SLEEPING IN GURNEY WITH SITTER AT BEDSIDE.
[2019-10-30] MEDS ORDERED: ZIPRASIDONE 20 MG INJ IM ONE (18:00)
--- NOTE | 2019-10-30 18:16 | NUR ---
PT AGAIN AGGRESSIVE WITH STAFF AND WANTING TO LEAVE, NOTIFIED. DIAN CHEN ORDERED. WHEN THIS RN RETURNED TO ROOM PT CALM AND COOPERATIVE WITH SITTER, HAD FORGOTTEN HE WANTED TO LEAVE. WILL HOLD DIAN AT THIS TIME.
--- NOTE | 2019-10-30 18:20 | NUR ---
Milla dickerson in [facility] - 10/30/19 at 1821 by [email or web address] Discharge instructions reviewed.
--- NOTE | 2019-10-30 18:51 | NUR ---
REPORT FROM TIN CROWLEY AT THIS TIME. PT RESTING ON BED WITH EYES CLOSED, APPEARS CALM AND NADN, SITTER IN VIEW FOR SAFETY, PENDING PT SOBRIETY FOR TELEPSYCH
--- NOTE | 2019-10-30 19:31 | NUR ---
PT RESTING ON GURNEY, WATCHING TV AT THIS TIME, SITTER AT BEDSIDE STATES PT HAS BEEN COOPERATIVE, COLIN, WILL CONTINUE TO MONITOR
--- NOTE | 2019-10-30 19:47 | NUR ---
Pt breathalyzed at this time, level 0.235. Pt resting in gurney with eyes closed, sitter in view for safety, pt has no requests at this time, vss
--- NOTE | 2019-10-30 21:33 | NUR ---
Pt resting on side with eyes closed in [place], respirations equal and unlabored, NADN, sitter states pt has been resting and easily redirectable, pt ate some of meal tray, no requests at this time
--- NOTE | 2019-10-30 22:37 | NUR ---
Pt continues to rest in gurney, periods of waking up but not saying much at this time, denies needs at this time, [place] garcia, sitter in view from hallway
--- NOTE | 2019-10-30 22:49 | NUR ---
Pt breathalyzed at this time, level 0.150
--- NOTE | 2019-10-31 00:47 | NUR ---
Telepsych placed in room
--- NOTE | 2019-10-31 00:59 | NUR ---
THROUGHPUT RN: TELEPSYCH PAGED. CAMERA IN ROOM.
--- NOTE | 2019-10-31 01:19 | NUR ---
Break RN: assumed care of pt on behalf of primary RN for lunch break only. Telepsych robot at bedside. pt awaiting eval. PO water given per pt request
--- NOTE | 2019-10-31 02:14 | NUR ---
Telepsych MD present on monitor in room with pt. Pt asked to please sit up and talk to MD, pt became agitated after multiple requests to comply and bolted up. Pt sitting up in bed talking to MD at this time
--- NOTE | 2019-10-31 03:45 | NUR ---
Pt resting in [facility] with eyes closed, jose, [place], sitter in view from [place]
--- NOTE | 2019-10-31 05:15 | NUR ---
After telepsych consult, pt is now a legal hold. Pt belongings (clothing, one pill bottle, hat) collected and placed in locked cabinet. Safety of room ensured, pt still attached to monitors for continuous monitoring of vitals and cardiac rhythm. Pt provided with ice water per request. Sitter in view. Pt cooperative and calm at this time, VSS
--- NOTE | 2019-10-31 06:39 | NUR ---
Pt resting in gurney with eyes closed, respirations equal and unlabored, johnn, jose, sitter [facility],
--- NOTE | 2019-10-31 06:53 | NUR ---
TOOK REPORT FROM PEACE WICK RN, [facility] AT THIS [facility]. PT CALM SLEEPING IN BED , RR EVEN AND UNLABORED. RIVKA SITTER OUTSIDE ROOM. ROOM IS SAFE AND SECURE.
--- NOTE | 2019-10-31 07:17 | NUR ---
THROUGHPUT: PT MEDICALLY CLEARED AND ON LEGAL HOLD, FAXED TO [facility], RECEIVED FAX CONFIRMATION
--- NOTE | 2019-10-31 08:06 | NUR ---
THROUGHPUT: RECEIVED A CALL BACK FROM [facility] PT IS OUT OF MEDICARE DAYS, UNABLE TO ACCEPT. FAXED TO [facility]
--- NOTE | 2019-10-31 09:57 | NUR ---
PT CALM SLEEPING IN BED. RIVKA SITTER OUTSIDE, ROOM SAFE AND SECURE
[2019-10-31] MEDS ORDERED: FLUO60TA PO (10:44)
[2019-10-31] MEDS ORDERED: QUET300T5 PO (10:44)
[2019-10-31] MEDS ORDERED: CLON0.5T PO (10:44)
[2019-10-31] MEDS ORDERED: LITH600C PO (10:44)
[2019-10-31 14:36] VITALS: BP 154/87
== END 2019-10-31 14:38 | disposition home or self-care (01) ==
LOC: ED 15:01
DX: F10.220 Alcohol dependence with intoxication, uncomplicated (principal); R07.89 Other chest pain; I45.9 Conduction disorder, unspecified; I10 Essential (primary) hypertension; F17.210 Nicotine dependence, cigarettes, uncomplicated; E78.5 Hyperlipidemia, unspecified; Y90.0 Blood alcohol level of less than 20 mg/100 ml; R10.9 Unspecified abdominal pain
CPT/HCPCS: 36415; 71045; 80053; 80307; 83690; 85025; 93005; 99285

== ENCOUNTER 2019-11-10 04:26 | Emergency (ER) | payer MEDICARE ==
[~2019-11-10] VITALS: Ht 177.8 cm; Wt 90.0 kg
[~2019-11-10 04:26] MED LIST changes: +CLON0.5T PO; +FLUO60TA PO; +LITH600C PO; +QUET300T5 PO
--- NOTE | 2019-11-10 04:46 | NUR ---
PT PLACED ON CARDIAC, BP AND O2 MONITORS. SIDE RAILS UP, CALL LIGHT IN REACH. EKG DONE. ERP TO BEDSIDE. PT LAYING IN BED, UPDATED ON POC, WILL CONTINUE TO MONITOR AND WATCH FOR ORDERS.
--- NOTE | 2019-11-10 04:48 | NUR ---
PER PT "THEY DISCOVERED A NODULE ON THE CHEST XRAY AT [facility], I THINK IT'S ON THE LEFT. THEY SAID TO GET IT RECHECKED IN 3-4 MONTHS AND IF IT'S GOTTEN BIGGER, GET IT BIOPSIED.
--- NOTE | 2019-11-10 05:07 | NUR ---
PT TO IMAGING.
[2019-11-10 05:16] LABS: BASOPHILS # (AUTO) 0.03 x10^3/uL (0-0.1); BASOPHILS % (AUTO) 0 % (0-1); EOSINOPHILS # (AUTO) 0.25 x10^3/uL (0-0.4); EOSINOPHILS % (AUTO) 3 % (1-7); LYMPHOCYTES # (AUTO) 2.83 x10^3/uL (1-3.4); LYMPHOCYTES % (AUTO) 36 % (22-44); MD NO; MEAN CORPUSCULAR HEMOGLOBIN 29.9 pg (27.5-34.5); MEAN CORPUSCULAR HGB CONC 32.7 g/dL (33.2-36.2); MEAN CORPUSCULAR VOLUME 91.4 fL (81-97); MEAN PLATELET VOLUME 7.2 fL (7.4-10.4); MONOCYTES # (AUTO) 0.62 x10^3/uL (0.2-0.8); MONOCYTES % (AUTO) 8 % (2-9); NEUTROPHILS # (AUTO) 4.24 x10^3/uL (1.8-6.8); NEUTROPHILS % (AUTO) 53 % (42-75); PLATELET COUNT 184 x10^3/uL (130-400); RED BLOOD COUNT 4.98 x10^6/uL (4.38-5.82); RED CELL DISTRIBUTION WIDTH 15.2 % (9.4-14.8)
--- NOTE | 2019-11-10 05:17 | NUR ---
ERP BACK TO BEDSIDE.
[2019-11-10 05:25] LABS: ALBUMIN 3.9 g/dL (3.4-5.0); ANION GAP 11 mmol/L (5-15); CALCIUM 9.3 mg/dL (8.5-10.1); CHLORIDE 108 mmol/L (98-107)
[2019-11-10 05:29] VITALS: BP 131/81
[2019-11-10 05:32] LABS: ALANINE AMINOTRANSFERASE 98 U/L (12-78); ALKALINE PHOSPHATASE 176 U/L (45-117); CREATININE 0.85 mg/dL (0.7-1.3); TOTAL PROTEIN 7.6 g/dL (6.4-8.2); TROPONIN I < 0.015 ng/mL (0.000-0.045)
== END 2019-11-10 06:00 | disposition home or self-care (01) ==
LOC: ED 04:45
DX: R07.89 Other chest pain (principal); R94.31 Abnormal electrocardiogram [ECG] [EKG]; K21.9 Gastro-esophageal reflux disease without esophagitis; E78.5 Hyperlipidemia, unspecified; I10 Essential (primary) hypertension; Z90.49 Acquired absence of other specified parts of digestive tract
CPT/HCPCS: 36415; 71046; 80053; 84484; 85025; 93005; 99285

== ENCOUNTER 2019-11-11 02:58 | Emergency (ER) | payer MEDICARE ==
[~2019-11-11] VITALS: Ht 177.8 cm; Wt 90.0 kg
--- NOTE | 2019-11-11 03:09 | NUR ---
PT BIB [facility] FOR STERNAL CHEST PAIN THAT STARTED 1 HOUR AGO. PAIN IS NON RADIATING AND CAUSES SOB. PAIN IS 6/10. PT GIVEN 324 ASA BY [facility]. VSS. PT PLACED ON MONITOR AND IN NAD. CALL LIGHT IN REACH
--- NOTE | 2019-11-11 03:41 | NUR ---
Patient given discharge instructions and they have confirmed that they understand the instructions. Patient ambulatory with steady gait.
[2019-11-11 03:42] VITALS: BP 129/81
== END 2019-11-11 03:44 | disposition home or self-care (01) ==
LOC: ED 03:42
DX: R07.89 Other chest pain (principal); R06.02 Shortness of breath; R94.31 Abnormal electrocardiogram [ECG] [EKG]; I10 Essential (primary) hypertension; E78.5 Hyperlipidemia, unspecified; K21.9 Gastro-esophageal reflux disease without esophagitis; Z90.49 Acquired absence of other specified parts of digestive tract; Z87.891 Personal history of nicotine dependence
CPT/HCPCS: 71045; 93005; 99283; 99406

== ENCOUNTER 2019-11-13 19:08 | Emergency (ER) | payer MEDICARE ==
[~2019-11-13] VITALS: Ht 172.7 cm; Wt 90.0 kg
--- NOTE | 2019-11-13 19:15 | NUR ---
64 YEAR OLD MALE BIB [facility] FOR SHARP CHEST PAIN AND SOB THAT HAS BEEN ONGOING WITH FREQUENT VISITS FOR SAME COMPLAINT. HE DENIES AND WEAKNESS AND STATES THE PAIN IS THE SAME USUAL.
[2019-11-13 21:05] LABS: TROPONIN I < 0.015 ng/mL (0.000-0.045)
[2019-11-13 21:32] VITALS: BP 126/80
== END 2019-11-13 21:53 | disposition home or self-care (01) ==
LOC: ED 21:44
DX: R07.89 Other chest pain (principal); K21.9 Gastro-esophageal reflux disease without esophagitis; Z86.19 Personal history of other infectious and parasitic diseases; Z90.49 Acquired absence of other specified parts of digestive tract; Z87.891 Personal history of nicotine dependence
CPT/HCPCS: 36415; 84484; 93005; 99284